=== PATIENT | female | born 1985 | race African-American/Black ===

== ENCOUNTER 2018-05-12 17:51 | Emergency (ER) | payer OTHER ==
[~2018-05-12] VITALS: Ht 170.2 cm; Wt 113.6 kg
[~2018-05-12 17:51] MED LIST: ALBU17AE16 IH; ALBU8.5H8 IH
[2018-05-12 19:41] VITALS: BP 126/82
== END 2018-05-12 19:46 | disposition left against medical advice (07) ==
LOC: EMS 17:51
DX: R11.2 Nausea with vomiting, unspecified (principal); R42 Dizziness and giddiness; J45.909 Unspecified asthma, uncomplicated
CPT/HCPCS: 99282

== ENCOUNTER 2025-07-28 09:43 | Emergency (ER) | payer SELFPAY ==
[~2025-07-28] VITALS: Ht 170.2 cm; Wt 113.6 kg
[~2025-07-28 09:43] MED LIST changes: -ALBU17AE16 IH; +ALBU18HF12 IH; -ALBU8.5H8 IH; +BUDE0.5A NEB; +FLUT16SP NASAL; +IPRA3AMP24 NEB; +LEVO750T68 PO; +LORA10TA60 PO; +METH4TAB3 PO; +TIZA-211 PO
[2025-07-28 09:45] VITALS: TEMP 98
[2025-07-28 10:24] VITALS: BP 149/87; PULSE 78; RESP 18; O2SAT 100
[2025-07-28] MEDS: HYDROCODONE/ACETAMINOPHEN 5-325 MG TABLET PO ONE (10:52)
[2025-07-28] MEDS: IBUPROFEN 600 MG TABLET PO ONE (10:53)
[2025-07-28] MEDS ORDERED: HYDR-4062 PO (11:21)
[2025-07-28] MEDS ORDERED: IBUP-1554 PO (11:21)
[2025-07-28] MEDS ORDERED: POLY119P3 PO (11:21)
== END 2025-07-28 11:29 | disposition home or self-care (01) ==
LOC: EMS 09:44
DX: S83.91XA Sprain of unspecified site of right knee, initial encounter (principal); M25.461 Effusion, right knee; J45.909 Unspecified asthma, uncomplicated; Z79.899 Other long term (current) drug therapy; W01.0XXA Fall on same level from slipping, tripping and stumbling without subsequent striking against object, initial encounter; Y93.89 Activity, other specified; Y92.89 Other specified places as the place of occurrence of the external cause; Y99.8 Other external cause status
CPT/HCPCS: 29505; 99283